=== PATIENT | male | born 1955 | race Hispanic/Latino ===

== ENCOUNTER 2017-09-28 08:23 | Outpatient (CLI) | payer OTHER ==
--- NOTE | 2017-09-28 09:42 | XRay Report ---
LEFT SHOULDER RADIOGRAPHS INDICATION: Left shoulder pain. COMPARISON: None similar at this institution. FINDINGS: Frontal and Y views of the left shoulder, 3 projections demonstrate normal humeral head contour, well positioned against the glenoid. Normal acromioclavicular joint. Preserved scapular contour. Normal visualized soft tissues, left ribs and lung. Aortic knob calcifications. Osteopenia not excluded. CONCLUSION: No acute left shoulder radiographic abnormality, as described. Thank you for the opportunity to participate in this patient's care.
== END 2017-09-28 08:24 | disposition home or self-care (01) ==
LOC: SPVIMAG 08:23
PROVIDERS: ATTEND Orthopaedic Surgery
DX: M25.512 Pain in left shoulder (principal); I70.0 Atherosclerosis of aorta